=== PATIENT | female | born 1965 | race Hispanic/Latino ===

== ENCOUNTER 2020-08-17 10:04 | Emergency (ER) | payer SELFPAY ==
--- NOTE | 2020-08-17 11:48 | RAD REPORT ---
EXAM DESCRIPTION: RAD - Chest Single View - 08/17/2020 11:42 am CLINICAL HISTORY: COUGH Chest pain. COMPARISON: No comparisons FINDINGS: Portable technique limits examination quality. Interstitial lung markings are mildly prominent bilaterally. This may indicate viral pneumonitis or i nterstitial pneumonia. The heart is normal in size. No displaced fractures.
[2020-08-17] MEDS ORDERED: FENTANYL CITR 100 MCG/2 ML ONE (11:50)
[2020-08-17] MEDS ORDERED: ACETAMINOPHEN 500 MG TAB ONE (11:50)
[2020-08-17] MEDS ORDERED: NA CHLORIDE 0.9% 1,000 ML ONE (11:50)
[2020-08-17 12:06] LABS: Protime INR 1.03
[2020-08-17 12:18] LABS: ALT/SGPT 42 U/L (12-78); AST/SGOT 52 U/L (15-37); Albumin 3.5 g/dL (3.4-5.0); Alkaline Phosphatase 86 U/L (45-117); Amylase 31 U/L (25-115); BUN Blood Urea Nitrogen 11 mg/dL (7-18); Bicarbonate 25 mmol/L (21-32); Bilirubin Direct < 0.1 mg/dL (0-0.2); Bilirubin Total 0.3 mg/dL (0.2-1.0); CKMB Creatine Kinase MB < 1.0 ng/mL (0.3-3.6); Creatine Phosphokinase 84 U/L (26-192); Ferritin 157.6 ng/mL (8-388); Glucose Level 220 mg/dL (74-106); Lipase 105 U/L (73-393); Potassium 4.2 mmol/L (3.5-5.1); Protein, Total 8.1 g/dL (6.4-8.2); Sodium Level 127 mmol/L (136-145); Troponin (Emerg Dept Use Only) < 0.02 ng/mL (0.0-0.045)
[2020-08-17 12:29] LABS: Basophils % 0.2 % (0-1.3); Hematocrit 33.8 % (36.0-45.0); Lymphocytes % 18.2 % (15.3-44.8); MPV 9.4 fL (7.6-11.3); RBC Red Blood Cell Count 3.66 M/uL (3.86-4.86)
[2020-08-17] MEDS ORDERED: dexAMETHasone 10 MG/ML VIAL ONE (12:35)
[2020-08-17] MEDS ORDERED: AZITHROMYCIN IV 500 MG in NA CHLORIDE 0.9% 250 ML IVPB ONE (13:00)
--- NOTE | 2020-08-17 14:56 | EDPHYS ---
Physician Documentation [facility] Name: Wendy Mejía Age: 55 yrs Sex: Female : 1965 Arrival Date: 08/17/2020 Time: 10:06 Bed 19 Private MD: ED Physician Pee Amado HPI: 08/17 11:14 This 55 yrs old Female presents to ER via Ambulatory with complaints of Cough, snw Dizziness, Breathing Difficulty. 11:14 The patient or guardian reports cough, with no sputum, difficulty breathing. Onset: The snw symptoms/episode began/occurred gradually, 4 day(s) ago, and became worse and became persistent. Severity of symptoms: At their worst the symptoms were moderate. Associated signs and symptoms: The patient has no apparent associated signs or symptoms. The patient has not experienced similar symptoms in the past. The patient has been recently seen by a physician: the patient's primary care provider, 4 day(s) ago, with similar presenting complaints, lab tests were done, flu negative and CoVId pending. Historical: - Allergies: 10:06 No Known Allergies; aa5 - Home Meds: 14:50 glipizide 10 mg Oral tab 2 times per day [Active]; simvastatin 40 mg Oral tab once aa5 daily [Active]; gabapentin 300 mg oral cap twice a day [Active]; loratadine 10 mg oral tab 1 tab once daily [Active]; pantoprazole 40 mg oral TbEC once daily [Active]; allopurinol 100 mg Oral tab once daily [Active]; lisinopril-hydrochlorothiazide 20-25 mg oral tab once daily [Active]; metformin 1,000 mg Oral tab 2 times per day [Active]; Actos 15 mg Oral tab 1 tab once daily [Active]; - PMHx: 10:06 Hypertension; Diabetes - NIDDM; Hyperlipidemia; aa5 - PSHx: 10:06 Right eye; aa5 - Immunization history:: Adult Immunizations unknown. - Social history:: Smoking status: Patient denies any tobacco usage or history of. ROS: 11:14 Eyes: Negative for injury, pain, redness, and discharge, ENT: Negative for injury, snw pain, and discharge, Neck: Negative for injury, pain, and swelling, Cardiovascular: Negative for chest pain, palpitations, and edema. 11:14 Abdomen/GI: Negative for abdominal pain, nausea, vomiting, diarrhea, and constipation, Back: Negative for injury and pain, : Negative for injury, bleeding, discharge, and swelling, MS/Extremity: Negative for injury and deformity, Skin: Negative for injury, rash, and discoloration, Neuro: Negative for headache, weakness, numbness, tingling, and seizure. 11:14 Constitutional: Positive for body aches, chills, fatigue, fever, malaise, poor PO intake. 11:14 Respiratory: Positive for cough, shortness of breath, at rest. Exam: 10:51 Constitutional: This is a well developed, well nourished patient who is awake, alert, snw and in no acute distress. + fever, + bodyaches, + malaise Head/Face: Normocephalic, atraumatic. Eyes: Pupils equal round and reactive to light, extra-ocular motions intact. Lids and lashes normal. Conjunctiva and sclera are non-icteric and not injected. Cornea within normal limits. Periorbital areas with no swelling, redness, or edema. ENT: Nares patent. No nasal discharge, no septal abnormalities noted. Tympanic membranes are normal and external auditory canals are clear. Oropharynx with no redness, swelling, or masses, exudates, or evidence of obstruction, uvula midline. Mucous membranes moist. Neck: Trachea midline, no thyromegaly or masses palpated, and no cervical lymphadenopathy. Supple, full range of motion without nuchal rigidity, or vertebral point tenderness. No Meningismus. Chest/axilla: Normal chest wall appearance and motion. Nontender with no deformity. No lesions are appreciated. Cardiovascular: Regular rate and rhythm with a normal S1 and S2. No gallops, murmurs, or rubs. Normal PMI, no JVD. No pulse deficits. Abdomen/GI: Soft, non-tender, with normal bowel sounds. No distension or tympany. No guarding or rebound. No evidence of tenderness throughout. Back: No spinal tenderness. No costovertebral tenderness. Full range of motion. Skin: Warm, dry with normal turgor. Normal color with no rashes, no lesions, and no evidence of cellulitis. MS/ Extremity: Pulses equal, no cyanosis. Neurovascular intact. Full, normal range of motion. Neuro: Awake and alert, GCS 15, oriented to person, place, time, and situation. Cranial nerves II-XII grossly intact. Motor strength 5/5 in all extremities. Sensory grossly intact. Cerebellar exam normal. Normal gait. 10:51 Respiratory: the patient does not display signs of respiratory distress, Respirations: shallow respirations, tachypnea, Breath sounds: bronchial sounds, that are moderate, that are severe, are heard diffusely. 11:49 ECG was reviewed by the Attending Physician. kdr Vital Signs: 10:06 BP 149 / 73; Pulse 82; Resp 24 S; Temp 99.0(O); Pulse Ox 97% on R/A; Weight 81.65 kg aa5 (R); Pain 0/10; 10:24 BP 127 / 66; Pulse 83; Resp 18 S; Pulse Ox 98% on R/A; ca1 11:20 BP 126 / 70; Pulse 77; Resp 25 S; Pulse Ox 96% on R/A; ca1 12:35 BP 110 / 65; Pulse 68; Resp 24 S; Pulse Ox 98% on R/A; ca1 13:30 BP 104 / 70; Pulse 73; Resp 22; Pulse Ox 97% on R/A; ca1 14:38 BP 117 / 67; Pulse 69; Resp 22 S; Temp 98.4(O); Pulse Ox 98% on R/A; ca1 15:30 BP 109 / 68; Pulse 75; Resp 19 S; Pulse Ox 98% on R/A; ca1 MDM: 10:09 Patient medically screened. snw 15:01 Data reviewed: vital signs, nurses notes. Data interpreted: Pulse oximetry: on room air snw is 98 %. Interpretation: normal. Counseling: I had a detailed discussion with the patient and/or guardian regarding: the historical points, exam findings, and any diagnostic results supporting the discharge/admit diagnosis, lab results, radiology results, the need for outpatient follow up, to return to the emergency department if symptoms worsen or persist or if there are any questions or concerns that arise at home. Special discussion: Based on the history and exam findings, there is no indication for further emergent testing or inpatient evaluation. I discussed with the patient/guardian the need to see the primary care provider for further evaluation of the symptoms. I discussed with the patient/guardian the need to see the slag wheeler for further evaluation of the symptoms. 08/17 10:34 Order name: Amylase, Serum; Complete Time: 12:20 snw 08/17 10:34 Order name: Basic Metabolic Panel; Complete Time: 12:20 snw 08/17 10:34 Order name: Blood Culture Adult (2) snw 08/17 10:34 Order name: CBC with Diff; Complete Time: 12:45 snw 08/17 10:34 Order name: Ckmb; Complete Time: 12:20 snw 08/17 10:34 Order name: CPK; Complete Time: 12:20 snw 08/17 10:34 Order name: Lactate; Complete Time: 12:20 snw 08/17 10:34 Order name: LFT's; Complete Time: 12:20 snw 08/17 10:34 Order name: Lipase; Complete Time: 12:20 snw 08/17 10:34 Order name: Procalcitonin; Complete Time: 12:45 snw 08/17 10:34 Order name: Protime (+inr); Complete Time: 12:45 snw 08/17 10:34 Order name: Ptt, Activated; Complete Time: 12:45 snw 08/17 10:34 Order name: Troponin (emerg Dept Use Only); Complete Time: 12:20 snw 08/17 10:34 Order name: Urine Microscopic Only snw 08/17 10:34 Order name: Chest Single View XRAY; Complete Time: 12:07 snw 08/17 10:34 Order name: Accucheck; Complete Time: 11:55 snw 08/17 10:34 Order name: Cardiac monitoring; Complete Time: 11:55 snw 08/17 10:34 Order name: EKG - Nurse/Tech; Complete Time: 11:55 snw 08/17 10:34 Order name: Flu; Complete Time: 12:23 snw 08/17 10:34 Order name: COVID-19 snw 08/17 10:35 Order name: Ferritin; Complete Time: 12:20 snw 08/17 12:11 Order name: Glucose, Ancillary Testing; Complete Time: 12:13 EDMS 08/17 15:33 Order name: Urine Dipstick--Ancillary (enter results); Complete Time: 15:46 bd 08/17 10:34 Order name: IV Saline Lock - Large Bore; Complete Time: 11:56 snw 08/17 10:34 Order name: Labs collected and sent; Complete Time: 11:56 snw 08/17 10:34 Order name: O2 Per Protocol; Complete Time: 11:56 snw 08/17 10:34 Order name: O2 Sat Monitoring; Complete Time: 11:56 snw 08/17 10:34 Order name: Urine Dipstick-Ancillary (obtain specimen); Complete Time: 15:50 snw 08/17 14:29 Order name: Misc. Order: plese have pt ambulate around the room and monitor SpO2 snw continuously for 5 min; Complete Time: 14:38 EC:49 Rate is 74 beats/min. Rhythm is regular, Normal Sinus Rhythm with No ectopy. QRS [place] kdr is Normal. NV interval is normal. QRS interval is normal. QT interval is normal. No Q waves. Clinical impression: Normal ECG. Administered Medications: Discontinued: NS 0.9% 1000 ml IV at 125 ml/hr continuous 11:40 Drug: Tylenol 1000 mg Route: PO; ca1 11:50 Drug: NS 0.9% 1000 ml Route: IV; Rate: 125 ml/hr; Site: right antecubital; ca1 11:53 Drug: fentaNYL (PF) 25 mcg {Note: rass 0.} Route: IVP; Site: right antecubital; ca1 12:25 Drug: NS 0.9% 1000 ml Route: IV; Rate: 75 ml/hr; Site: right antecubital; ca1 12:29 Drug: Decadron - Dexamethasone 10 mg Route: IVP; Site: right antecubital; ca1 12:42 Drug: Zithromax 500 mg Route: IVPB; Infused Over: 1 hrs; Site: right antecubital; ca1 15:20 Drug: Tussionex Pennkinetic ER 5 ml Route: PO; aa5 Disposition: 08/18 07:50 Co-signature as Attending Physician, Pee Amado MD I agree with the assessment and kdr plan of care. Disposition: 08/17/20 14:55 Discharged to Home. Impression: Pneumonia due to SARS-associated coronavirus. - Condition is Stable. - Discharge Instructions: Aspirin and Your Heart, Rehydration, Adult, COVID-19. - Prescriptions for Albuterol Sulfate 90 mcg/actuation - inhale 1-2 puff by INHALATION route every 4-6 hours; 1 Inhaler. Zithromax 500 mg Oral Tablet - take 1 tablet by ORAL route once daily for 5 days; 5 tablet. Prednisone 20 mg Oral Tablet - take 2 tablet by ORAL route once daily for 5 days; 10 tablet. - Medication Reconciliation Form, Thank You Letter, Antibiotic Education, Prescription Opioid Use form. - Follow up: Private Physician; When: 2 - 3 days; Reason: Recheck today's complaints, Continuance of care, Re-evaluation by your physician. Follow up: Emergency Department; When: As needed; Reason: Worsening of condition. - Notes: Signatures: Dispatcher [employer] EDMS Pee Amado MD MD kdr Waters, Shelly, CLIENT RELATIONSHIP EXECUTIVE-C CLIENT RELATIONSHIP EXECUTIVE-Csnw Jina Jackson RN RN aa5 Alexandra Morales RN RN ca1 Corrections: (The following items were deleted from the chart) 08/17 15:57 14:55 08/17/2020 14:55 Discharged to Home. Impression: Pneumonia due to SARS-associated aa5 coronavirus. Condition is Stable. Forms are Medication Reconciliation Form, Thank You Letter, Antibiotic Education, Prescription Opioid Use. Follow up: Private Physician; When: 2 - 3 days; Reason: Recheck today's complaints, Continuance of care, Re-evaluation by your physician. Follow up: Emergency Department; When: As needed; Reason: Worsening of condition. snw
--- NOTE | 2020-08-17 14:56 | ER ---
Nurse's Notes [facility] Name: Wendy Mejía Age: 55 yrs Sex: Female : 1965 Arrival Date: 08/17/2020 Time: 10:06 Bed 19 Private MD: Diagnosis: Pneumonia due to SARS-associated coronavirus Presentation: 08/17 10:06 Chief complaint: Patient states: dry cough and SOB since Friday. Pt also reports chest aa5 pain with cough. Pending COVID-19 result completed on Friday by a Clinic in [place], [place], pt reports negative Flu swab on Friday. 10:06 Coronavirus screen: cough unrelated to allergies, shortness of breath, Client presents aa5 with at least one sign or symptom that may indicate coronavirus-19. Standard/surgical mask placed on the client. Provider contacted for isolation considerations. Ebola Screen: Patient negative for fever greater than or equal to 101.5 degrees Fahrenheit, and additional compatible Ebola Virus Disease symptoms. Initial Sepsis Screen: Does the patient meet any 2 criteria? No. Patient's initial sepsis screen is negative. Does the patient have a suspected source of infection? No. Patient's initial sepsis screen is negative. Risk Assessment: Do you want to hurt yourself or someone else? Patient reports no desire to harm self or others. Onset of symptoms was August 2020. 10:06 Acuity: VESTA 3 aa5 10:06 Method Of Arrival: Ambulatory aa5 Triage Assessment: 10:26 Respiratory: Onset: The symptoms/episode began/occurred. ca1 Historical: - Allergies: 10:06 No Known Allergies; aa5 - Home Meds: 14:50 glipizide 10 mg Oral tab 2 times per day [Active]; simvastatin 40 mg Oral tab once aa5 daily [Active]; gabapentin 300 mg oral cap twice a day [Active]; loratadine 10 mg oral tab 1 tab once daily [Active]; pantoprazole 40 mg oral TbEC once daily [Active]; allopurinol 100 mg Oral tab once daily [Active]; lisinopril-hydrochlorothiazide 20-25 mg oral tab once daily [Active]; metformin 1,000 mg Oral tab 2 times per day [Active]; Actos 15 mg Oral tab 1 tab once daily [Active]; - PMHx: 10:06 Hypertension; Diabetes - NIDDM; Hyperlipidemia; aa5 - PSHx: 10:06 Right eye; aa5 - Immunization history:: Adult Immunizations unknown. - Social history:: Smoking status: Patient denies any tobacco usage or history of. Screenin:24 Abuse screen: Denies threats or abuse. Denies injuries from another. Nutritional ca1 screening: No deficits noted. Tuberculosis screening: No symptoms or risk factors identified. Fall Risk None identified. Assessment: 10:20 General: Appears in no apparent distress. comfortable, Behavior is calm, cooperative, ca1 appropriate for age. Pain: Complains of pain in chest Pain currently is 7 out of 10 on a pain scale. Pain began 4 days, when coughing Is intermittent, Also complains of. Neuro: Level of Consciousness is awake, alert, obeys commands, Oriented to person, place, time, situation. Cardiovascular: Heart tones S1 S2 present Capillary refill < 3 seconds Patient's skin is warm and dry. Rhythm is sinus rhythm. Respiratory: Reports shortness of breath cough that is Airway is patent Respiratory effort is even, unlabored, Respiratory pattern is regular, symmetrical, tachypnea Breath sounds are clear bilaterally. GI: Abdomen is round non-distended, Bowel sounds present X 4 quads. Abd is soft and non tender X 4 quads. : No signs and/or symptoms were reported regarding the genitourinary system. EENT: No signs and/or symptoms were reported regarding the EENT system. Derm: Skin is intact, is healthy with good turgor, Skin is pink, warm \T\ dry. Musculoskeletal: Circulation, motion, and sensation intact. Capillary refill < 3 seconds. 11:20 Reassessment: Patient appears in no apparent distress at this time. Patient and/or ca1 family updated on plan of care and expected duration. Pain level reassessed. Patient is alert, oriented x 3, equal unlabored respirations, skin warm/dry/pink. 12:34 Reassessment: Patient appears in no apparent distress at this time. Patient and/or ca1 family updated on plan of care and expected duration. Pain level reassessed. Patient is alert, oriented x 3, equal unlabored respirations, skin warm/dry/pink. 13:30 Reassessment: Patient appears in no apparent distress at this time. Patient and/or ca1 family updated on plan of care and expected duration. Pain level reassessed. Patient is alert, oriented x 3, equal unlabored respirations, skin warm/dry/pink. 14:30 Reassessment: Patient appears in no apparent distress at this time. Patient and/or ca1 family updated on plan of care and expected duration. Pain level reassessed. Patient is alert, oriented x 3, equal unlabored respirations, skin warm/dry/pink. 15:00 Reassessment: Pt ambulated around nurse's station sats remained at 99% at RA. C/O a ca1 little SOB. 15:30 Reassessment: Patient appears in no apparent distress at this time. Patient is alert, ca1 oriented x 3, equal unlabored respirations, skin warm/dry/pink. Vital Signs: 10:06 BP 149 / 73; Pulse 82; Resp 24 S; Temp 99.0(O); Pulse Ox 97% on R/A; Weight 81.65 kg aa5 (R); Pain 0/10; 10:24 BP 127 / 66; Pulse 83; Resp 18 S; Pulse Ox 98% on R/A; ca1 11:20 BP 126 / 70; Pulse 77; Resp 25 S; Pulse Ox 96% on R/A; ca1 12:35 BP 110 / 65; Pulse 68; Resp 24 S; Pulse Ox 98% on R/A; ca1 13:30 BP 104 / 70; Pulse 73; Resp 22; Pulse Ox 97% on R/A; ca1 14:38 BP 117 / 67; Pulse 69; Resp 22 S; Temp 98.4(O); Pulse Ox 98% on R/A; ca1 15:30 BP 109 / 68; Pulse 75; Resp 19 S; Pulse Ox 98% on R/A; ca1 ED Course: 10:06 Patient arrived in ED. ag5 10:06 Arm band placed on Patient placed in an exam room, on a stretcher. aa5 10:07 Alexandra Morales, KESHA is Primary Nurse. ca1 10:08 Shanta Tomlin FNP-C is PHCP. snw 10:08 Pee Amado MD is Attending Physician. snw 10:22 Triage completed. aa5 10:24 Patient has correct armband on for positive identification. Bed in low position. Call ca1 light in reach. Side rails up X2. Pulse ox on. NIBP on. Warm blanket given. 11:42 Chest Single View XRAY In Process Unspecified. EDMS 11:46 Inserted saline lock: 20 gauge in right antecubital area, using aseptic technique. ca1 Blood collected. 11:46 Initial lab(s) drawn, by me, sent to lab. First set of blood cultures drawn by me. ca1 Administered Medications: Discontinued: NS 0.9% 1000 ml IV at 125 ml/hr continuous 11:40 Drug: Tylenol 1000 mg Route: PO; ca1 11:50 Drug: NS 0.9% 1000 ml Route: IV; Rate: 125 ml/hr; Site: right antecubital; ca1 11:53 Drug: fentaNYL (PF) 25 mcg {Note: rass 0.} Route: IVP; Site: right antecubital; ca1 12:25 Drug: NS 0.9% 1000 ml Route: IV; Rate: 75 ml/hr; Site: right antecubital; ca1 12:29 Drug: Decadron - Dexamethasone 10 mg Route: IVP; Site: right antecubital; ca1 12:42 Drug: Zithromax 500 mg Route: IVPB; Infused Over: 1 hrs; Site: right antecubital; ca1 15:20 Drug: Tussionex Pennkinetic ER 5 ml Route: PO; aa5 Outcome: 14:55 Discharge ordered by . snamy 15:57 Patient left the ED. aa5 Signatures: Dispatcher [employer] EDMS Shanta Tomlin, RANCHO RIM ROLLER OPERATOR-Jina Min, RN RN aa5 Alexandra Morales RN RN ca1 Evelia Murphy ag5 Corrections: (The following items were deleted from the chart) 12:39 10:20 Respiratory: Reports shortness of breath cough that is Airway is patent ca1 Respiratory effort is even, unlabored, Respiratory pattern is regular, symmetrical, Breath sounds are clear bilaterally. ca1 14:38 13:30 BP 117 / 67; Pulse 69bpm; Resp 22bpm; Spontaneous; Pulse Ox 98% RA; Temp 98.4F ca1 Oral; ca1
[2020-08-17] MEDS ORDERED: HYDROCODONE/CHLORPHEN 5 ML/OSYR ONE (15:37)
[2020-08-17 15:44] LABS: Urine Blood NEGATIVE (NEG); Urine Glucose 2+ (NEG); Urine Protein NEGATIVE (NEG); Urine pH 6.5 (5.0-7.0)
[2020-08-17 16:06] LABS: Urine Bacteria <20 /HPF (<20); Urine RBC <5 /HPF (NONE SEEN)
[2020-08-17 16:07] LABS: Urine Amorphous Sediment 1+ /HPF (NONE SEEN); Urine Mucus 1+ /HPF (NONE SEEN)
[2020-08-18 12:21] VITALS: TEMP 98.4; O2SAT 98
[2020-08-18 12:22] VITALS: BP 109/68
== END 2020-08-17 15:57 | disposition home or self-care (01) ==
LOC: ER 10:04
DX: U07.1 COVID-19 (principal); J12.89 Other viral pneumonia; I10 Essential (primary) hypertension; E78.5 Hyperlipidemia, unspecified; E11.9 Type 2 diabetes mellitus without complications
CPT/HCPCS: 36415; 71045; 80048; 80076; 81003; 81015; 82150; 82550; 82553; 82728; 82947; 83605; 83690; 84145; 84484; 85025; 85610; 85730; 87040; 87804; 93005; 96374; 96375; 99284; J0456; J1100; J3010; J7030; J7050

== ENCOUNTER 2021-11-04 13:44 | Inpatient (IN) | payer SELFPAY ==
[2021-11-04] MEDS ORDERED: MORPHINE 4 MG/ML SYR ONE (14:11)
[2021-11-04] MEDS ORDERED: ONDANSETRON 4 MG/2 ML VIAL ONE (14:11)
[2021-11-04 14:25] LABS: Absolute Lymphocytes (CBC) 0.5 K/uL (0.7-4.9); Hematocrit 37.8 % (36.0-45.0); Lymphocytes % 5.2 % (15.3-44.8); RBC Red Blood Cell Count 4.16 M/uL (3.86-4.86)
[2021-11-04] MEDS ORDERED: NA CHLORIDE 0.9% 1,000 ML ONE ×2 (14:27→15:04)
[2021-11-04 14:55] LABS: ALT/SGPT 43 U/L (12-78); AST/SGOT 33 U/L (15-37); Albumin 3.4 g/dL (3.4-5.0); Alkaline Phosphatase 49 U/L (45-117); BUN Blood Urea Nitrogen 41 mg/dL (7-18); Bicarbonate 26 mmol/L (21-32); Bilirubin Total 0.3 mg/dL (0.2-1.0); Glucose Level 211 mg/dL (74-106); Lipase 137 U/L (73-393); Potassium 4.2 mmol/L (3.5-5.1); Protein, Total 7.4 g/dL (6.4-8.2); Sodium Level 133 mmol/L (136-145)
[2021-11-04 14:56] LABS: Bilirubin Direct < 0.1 mg/dL (0-0.2)
--- NOTE | 2021-11-04 15:50 | RAD REPORT ---
EXAM DESCRIPTION: CT - Abdomen Pelvis W Contrast - 11/04/2021 3:07 pm CLINICAL HISTORY: syncope;Abd pain COMPARISON: <Comparisons> TECHNIQUE: Biphasic, helical CT imaging of the abdomen and pelvis was performed following 100 ml non -ionic IV contrast. No oral contrast administered. All CT scans are performed using dose optimization technique as appropriate and may include automated exposure control or mA/KV adjustment according to patient size. FINDINGS: No suspicious findings in the lung bases. The liver, spleen, and pancreas show no suspicious findings. Gallbladder and biliary tree are also wi thout suspicious finding. Symmetric renal function is seen with no hydronephrosis or suspicious renal mass. No pyelonephritis o r acute parenchymal process. Urinary bladder is contracted limiting detail. Uterus and ovaries show n o suspicious findings. No adrenal abnormalities. Stomach is distended but not dilated by retained fluid. There is fluid in the distal esophagus. No ga stric wall thickening or mass. No antrum or duodenal wall thickening. Outlet obstruction is not suspe cted. A few fluid-filled prominent small bowel loops are present. Colon is mostly decompressed. No ac sandy colon process seen. No free air, free fluid or inflammatory stranding. No hernia, mass or bulky lymphadenopathy. No suspicious bony findings. IMPRESSION: Fluid distends the stomach probably gastroparesis. No outlet obstruction suspected. A few small bowel loops are prominent and fluid-filled. Findings are most likely a nonspecific gastro enteritis. No obstruction, free air or emergent finding.
--- NOTE | 2021-11-04 15:56 | RAD REPORT ---
EXAM DESCRIPTION: US - Abdomen Exam Limited - 11/04/2021 3:47 pm CLINICAL HISTORY: ABD PAIN COMPARISON: Abdomen Pelvis W Contrast dated 11/04/2021 FINDINGS: No gallstones, sludge or other abnormalities within the gallbladder lumen. There is no wal l thickening or pericholecystic fluid. No common duct stone or biliary tree dilatation identified. IMPRESSION: Normal gallbladder and biliary tree ultrasound.
--- NOTE | 2021-11-04 16:48 | P.HP ---
Certification for Inpatient Patient admitted to: Inpatient With expected LOS: >2 Midnights Practitioner: I am a practitioner with admitting privileges, knowledge of patient current condition, hospital course, and medical plan of care. Services: Services provided to patient in accordance with Admission requirements found in Title 42 Section 412.3 of the Code of Federal Regulations Patient History Date of Service: 11/04/21 Reason for admission: Syncope History of Present Illness: Patient is a 56-year-old female with a known past medical history of hypertension, type 2 diabetes mellitus, hyperlipidemia and GERD. She presented to the ER accompanied by [id number] for evaluation of intractable nausea. Patient has been having these symptoms for the past 5 days. She was mainly having some nausea but later progressed on the day of admission when she developed two episodes of nonbloody vomiting. Her oral intake has been very poor during this time as well. Patient arrived in the ER where she syncopized. She was severely hypotensive with SBP in the 60s. Her mental status returned to normal limits after volume repletion. She was given 2 L. Her basic labs included CBC and BMP, which are unremarkable. CT abdomen and pelvis suggestive of gastroparesis. Upon review of your medications, it looks like she was taking lisinopril and HCTZ during this time. Physical Examination - Physical Exam General: In no apparent distress, Obese, Other (Lethargic) HEENT: Atraumatic, Normocephalic Respiratory: Clear to auscultation bilaterally, Normal air movement Cardiovascular: Normal pulses, Regular rate/rhythm, Normal S1 S2 Gastrointestinal: Normal bowel sounds, No tenderness, Distended Integumentary: No rashes, No breakdown, No significant lesion, No tenderness/swelling, No erythema Neurological: Normal speech, Normal affect - Studies Laboratory Data (last 24 hrs) 11/04/21 14:16: WBC 10.50, Hgb 12.6, Hct 37.8, Plt Count 190 11/04/21 14:16: Sodium 133 L, Potassium 4.2, BUN 41 H, Creatinine 1.06, Glucose 211 H, Total Bilirubin 0.3, AST 33, ALT 43, Alkaline Phosphatase 49, Lipase 137 Assessment and Plan - Problems (Diagnosis) (1) Syncope Current Visit: Yes Status: Acute (2) Nausea and vomiting Current Visit: Yes Status: Acute (3) Diabetic gastroparesis Current Visit: Yes Status: Acute (4) Obesity Current Visit: Yes Status: Acute (5) Hypotension Current Visit: Yes Status: Acute - Advance Directives Does patient have a Living Will: No Does patient have a Durable POA for Healthcare: No Physician Review Additional Text: Assessment Patient is a 56-year-old Italian-speaking female with past medical history of obesity, type 2 diabetes mellitus and hypertension. She is currently being admitted for syncope after an episode of intractable nausea and vomiting. She was severely hypotensive in the ER with SBP in the 60s. Her blood pressures returned to normal limits after 2 L of IV fluid Syncope Intractable nausea and vomiting Gastroparesis Type 2 diabetes mellitus Hypertension Hyperlipidemia Plan: Will admit inpatient for syncopal work-up Her syncope is most likely from hypovolemic state Currently with gastroparesis as per CT abdomen and pelvis. I will start her on a short course of IV Reglan and PPI Follow up HbA1c I will also obtain a GI consult Keep n.p.o. for bowel rest and start IV fluid infusion She will need daily orthostatic Follow up TTE DVT/GI prophylaxis
--- NOTE | 2021-11-04 16:58 | ER ---
Nurse's Notes [facility] Name: Wendy Mejía Age: 56 yrs Sex: Female : 1965 Arrival Date: 11/04/2021 Time: 13:48 Bed 6 Private MD: Diagnosis: Gastroparesis;Abdominal pain, unspecified;Syncope;Hypotension, unspecified Presentation: 11/04 13:50 Chief complaint: Patient states: pt reported right side abdominal and lower sternum goldberg pain x4days n/v. Coronavirus screen: Vaccine status: Patient reports receiving the 2nd dose of the covid vaccine. Ebola Screen: Patient denies travel to an Ebola-affected area in the 21 days before illness onset. Initial Sepsis Screen: Does the patient meet any 2 criteria? No. Patient's initial sepsis screen is negative. Does the patient have a suspected source of infection? No. Patient's initial sepsis screen is negative. Risk Assessment: Do you want to hurt yourself or someone else? Patient reports no desire to harm self or others. Onset of symptoms was October 2021. 13:50 Method Of Arrival: EMS: [facility] 13:50 Acuity: VESTA 3 goldberg Triage Assessment: 14:02 General: Appears in no apparent distress. Behavior is calm, cooperative. goldberg Historical: - Allergies: 13:57 No Known Allergies; ke1 - Home Meds: 13:57 Actos 15 mg Oral tab 1 tab once daily [Active]; allopurinol 100 mg Oral tab once daily goldberg [Active]; gabapentin 300 mg Oral cap twice a day [Active]; glipizide 10 mg Oral tab 2 times per day [Active]; lisinopril-hydrochlorothiazide 20-25 mg Oral tab once daily [Active]; loratadine 10 mg Oral tab 1 tab once daily [Active]; metformin 1,000 mg Oral tab 2 times per day [Active]; pantoprazole 40 mg Oral TbEC once daily [Active]; simvastatin 40 mg Oral tab once daily [Active]; - PMHx: 13:57 Diabetes - NIDDM; Hyperlipidemia; Hypertension; goldberg - Immunization history:: Adult Immunizations up to date. - Social history:: Smoking status: Patient denies any tobacco usage or history of. - Family history:: not pertinent. - Hospitalizations: : No recent hospitalization is reported. Screenin:57 Abuse screen: Denies threats or abuse. Denies injuries from another. Nutritional goldberg screening: No deficits noted. Tuberculosis screening: No symptoms or risk factors identified. Fall Risk Assessment: 13:55 Pain: Complains of pain in epigastric area and right upper quadrant. Cardiovascular: goldberg Reports fatigue, nausea, syncope. GI: Reports upper abdominal pain, nausea, vomiting. GI: Abd is soft Abdomen is tender to palpation in epigastric area and right upper quadrant. 14:30 Reassessment: morphine was given to pt and blood pressure decreased. provider notified. goldberg bedside u/s was conducted to r/o ruptured aneurysm. 19:17 General: updated pt and family on plan of care . as6 Vital Signs: 13:50 BP 105 / 64; Pulse 102; Resp 18; Temp 98.1; Pulse Ox 99% on R/A; Weight 77.11 kg; goldberg Height 5 ft. (152.40 cm); 14:20 BP 75 / 52; Pulse 76; Resp 16; Pulse Ox 97% on R/A; goldberg 14:33 BP 78 / 52; Pulse 77; Resp 16; Pulse Ox 96% on R/A; goldberg 14:40 BP 83 / 55; Pulse 82; Resp 16; Pulse Ox 95% on R/A; goldberg 14:44 BP 87 / 53; Pulse 85; Resp 16; Pulse Ox 96% on R/A; goldberg 14:49 BP 90 / 57; Pulse 83; Resp 16; Pulse Ox 97% on R/A; goldberg 14:55 BP 95 / 53; Pulse 82; Resp 16; Pulse Ox 96% on R/A; goldberg 15:13 BP 106 / 59; Pulse 89; Resp 16; Pulse Ox 99% on R/A; goldberg 16:25 BP 111 / 57; Pulse 89; Resp 21; Pulse Ox 99% on R/A; jl7 17:29 BP 122 / 71; Pulse 92; Resp 20; Pulse Ox 99% ; jl7 19:19 BP 105 / 64; Pulse 91; Resp 26 S; Pulse Ox 98% on R/A; as6 13:50 Body Mass Index 33.20 (77.11 kg, 152.40 cm) goldberg ED Course: 13:48 Patient arrived in ED. rn 13:48 Chriss Tinajero MD is Attending Physician. rn 13:55 Triage completed. goldberg 13:57 Patient has correct armband on for positive identification. Bed in low position. goldberg 13:57 No provider procedures requiring assistance completed. Maintain EMS IV. Dressing goldberg intact. Gauge \\T\\ site: 22g left hand. 14:03 Arm band placed on. goldberg 14:03 SARS-COV-2 RT PCR (Document "Date of Onset" if Symptomatic) Sent. goldberg 14:19 Basic Metabolic Panel Sent. goldberg 14:19 CBC with Diff Sent. goldberg 14:19 Hepatic Function Sent. goldberg 14:19 Lipase Sent. goldberg 14:33 Fanny Dean, RN is Primary Nurse. goldberg 14:33 Inserted saline lock: 20 gauge in right antecubital area, using aseptic technique. goldberg 15:06 CT Abd/Pelvis - IV Contrast Only In Process Unspecified. EDMS 15:47 US Abdomen Limited In Process Unspecified. EDMS 16:57 Prince Vernon MD is Hospitalizing Provider. rn 19:21 Primary Nurse role handed off by Fanny Dean RN eb 20:05 Patient admitted, IV remains in place. as6 Administered Medications: 14:18 Drug: morphine 4 mg Route: IVP; Site: right antecubital; goldberg 14:18 Follow up: Response: No adverse reaction goldberg 14:18 Drug: Zofran (Ondansetron) 4 mg Route: IVP; Site: right antecubital; goldberg 14:18 Follow up: Response: No adverse reaction goldberg 14:28 Drug: NS 0.9% 1000 ml Route: IV; Rate: 1000 ml; Site: right antecubital; goldberg 20:05 Follow up: Response: No adverse reaction; IV Status: Completed infusion; IV Intake: as6 1000ml 15:13 Drug: NS 0.9% 1000 ml Route: IV; Rate: 1000 ml; Site: right antecubital; goldberg 20:05 Follow up: Response: No adverse reaction; IV Status: Completed infusion; IV Intake: as6 1000ml Intake: 20:05 IV: 1000ml; Total: 1000ml. as6 20:05 IV: 1000ml; Total: 2000ml. as6 Outcome: 16:58 Decision to Hospitalize by Provider. rn 19:19 Admitted to Med/surg Report called to Attempted to give report. was told nurse is tw5 receiving report on other patients at this time. 20:05 Condition: stable as6 20:06 Patient left the ED. as6 Signatures: Dispatcher [employer] EDMS Chriss Tinajero MD MD rn Leal, Jahala RN RN jl7 Binta Bender Tiffany 5 Marcus Clarke RN RN as6 Fanny Dean RN RN ha Ebrottie, Kouassi, RN RN ke1
--- NOTE | 2021-11-04 16:59 | EDPHYS ---
Physician Documentation [facility] Name: Wendy Mejía Age: 56 yrs Sex: Female : 1965 Arrival Date: 11/04/2021 Time: 13:48 Bed 6 Private MD: ED Physician Chriss Tinajero HPI: 11/04 13:59 This 56 yrs old Female presents to ER via EMS with complaints of abd pain. rn 13:59 The patient presents with abdominal pain in the epigastric area, in the right upper rn quadrant. Onset: The symptoms/episode began/occurred 3 day(s) ago. The symptoms do not radiate. Associated signs and symptoms: Pertinent positives: nausea and vomiting, Pertinent negatives: diarrhea, fever, hematuria, vomiting blood. The symptoms are described as intermittent, sharp. Modifying factors: The symptoms are alleviated by nothing, the symptoms are aggravated by pressure, touching the area. Severity of pain: At its worst the pain was moderate in the emergency department the pain is unchanged. The patient has experienced similar episodes in the past. The patient has not recently seen a physician. Pt reports epigastric and RUQ abd pain, began 3 days ago, has had multiple times before but not this bad. NO fever. No diarrhea. No blood in stool. . Historical: - Allergies: 13:57 No Known Allergies; ke1 - Home Meds: 13:57 Actos 15 mg Oral tab 1 tab once daily [Active]; allopurinol 100 mg Oral tab once daily goldberg [Active]; gabapentin 300 mg Oral cap twice a day [Active]; glipizide 10 mg Oral tab 2 times per day [Active]; lisinopril-hydrochlorothiazide 20-25 mg Oral tab once daily [Active]; loratadine 10 mg Oral tab 1 tab once daily [Active]; metformin 1,000 mg Oral tab 2 times per day [Active]; pantoprazole 40 mg Oral TbEC once daily [Active]; simvastatin 40 mg Oral tab once daily [Active]; - PMHx: 13:57 Diabetes - NIDDM; Hyperlipidemia; Hypertension; goldberg - Immunization history:: Adult Immunizations up to date. - Social history:: Smoking status: Patient denies any tobacco usage or history of. - Family history:: not pertinent. - Hospitalizations: : No recent hospitalization is reported. ROS: 13:59 Constitutional: Negative for fever, chills, and weight loss, Eyes: Negative for injury, rn pain, redness, and discharge, Neck: Negative for injury, pain, and swelling, Cardiovascular: Negative for chest pain, palpitations, and edema, Respiratory: Negative for shortness of breath, cough, wheezing, and pleuritic chest pain, Abdomen/GI: + abd pain, + nausea/vomiting Back: Negative for injury and pain, : Negative for injury, bleeding, discharge, and swelling, MS/Extremity: Negative for injury and deformity, Skin: Negative for injury, rash, and discoloration, Neuro: Negative for headache, weakness, numbness, tingling, and seizure. Exam: 13:59 Constitutional: This is a well developed, well nourished patient who is awake, alert, rn crying and appears in pain Head/Face: Normocephalic, atraumatic. Eyes: Periorbital areas with no swelling, redness, or edema. Cardiovascular: Tachycardic, regular. No pulse deficits. Respiratory: No increased work of breathing, no retractions or nasal flaring. Abdomen/GI: soft, + epigastric and ruq tenderness, no distension, no pulsatile mass Skin: Warm, dry MS/ Extremity: Pulses equal, no cyanosis. Neuro: Awake and alert, GCS 15 Vital Signs: 13:50 BP 105 / 64; Pulse 102; Resp 18; Temp 98.1; Pulse Ox 99% on R/A; Weight 77.11 kg; goldberg Height 5 ft. (152.40 cm); 14:20 BP 75 / 52; Pulse 76; Resp 16; Pulse Ox 97% on R/A; goldberg 14:33 BP 78 / 52; Pulse 77; Resp 16; Pulse Ox 96% on R/A; goldberg 14:40 BP 83 / 55; Pulse 82; Resp 16; Pulse Ox 95% on R/A; goldberg 14:44 BP 87 / 53; Pulse 85; Resp 16; Pulse Ox 96% on R/A; goldberg 14:49 BP 90 / 57; Pulse 83; Resp 16; Pulse Ox 97% on R/A; goldberg 14:55 BP 95 / 53; Pulse 82; Resp 16; Pulse Ox 96% on R/A; goldberg 15:13 BP 106 / 59; Pulse 89; Resp 16; Pulse Ox 99% on R/A; goldberg 16:25 BP 111 / 57; Pulse 89; Resp 21; Pulse Ox 99% on R/A; jl7 17:29 BP 122 / 71; Pulse 92; Resp 20; Pulse Ox 99% ; jl7 19:19 BP 105 / 64; Pulse 91; Resp 26 S; Pulse Ox 98% on R/A; as6 13:50 Body Mass Index 33.20 (77.11 kg, 152.40 cm) goldberg Procedures: 14:29 Ultrasound: Type: Fast exam, performed by the emergency department physician, Bedside rn FAST performed after patient reported dizziness and monitor showed drop in BP. FAST neg. No evidence of AAA or free fluid.. MDM: 13:48 Patient medically screened. rn 14:29 ED course: Pt reported dizziness, repeat BP dropped, bedside u/s performed and FAST rn neg, no AAA, no free fluid. 1 L bolus started, and patient placed supine, BP improving, patient improving. . 16:56 Differential diagnosis: bowel obstruction, cholecystitis, Cholelithiasis, gastritis, rn gastroesophageal reflux disease, non-specific abd pain, pancreatitis, Peptic Ulcer Disease, Perf. Duodenal Ulcer. Differential diagnosis: gastroparesis. Data reviewed: vital signs, nurses notes. Counseling: I had a detailed discussion with the patient and/or guardian regarding: the historical points, exam findings, and any diagnostic results supporting the discharge/admit diagnosis, lab results, radiology results, the need for further work-up and treatment in the hospital. Response to treatment: the patient's symptoms have mildly improved after treatment, and as a result, I will admit patient. Admission orders: after a detailed discussion of the patient's condition and case, the admit orders are written by me. 11/04 13:50 Order name: Basic Metabolic Panel; Complete Time: 15:00 rn 11/04 13:50 Order name: CBC with Diff; Complete Time: 15:00 rn 11/04 13:50 Order name: Hepatic Function; Complete Time: 15:00 rn 11/04 13:50 Order name: Lipase; Complete Time: 15:00 rn 11/04 13:50 Order name: Troponin High Sensitivity; Complete Time: 15:00 rn 11/04 13:50 Order name: SARS-COV-2 RT PCR (Document "Date of Onset" if Symptomatic); Complete Time: rn 15:00 11/04 13:50 Order name: CT Abd/Pelvis - IV Contrast Only; Complete Time: 15:57 rn 11/04 13:50 Order name: US Abdomen Limited; Complete Time: 15:57 rn 11/04 13:50 Order name: EKG; Complete Time: 13:51 rn 11/04 16:40 Order name: Echo with Doppler EDMS 11/04 13:50 Order name: IV Saline Lock; Complete Time: 14:19 rn 11/04 13:50 Order name: Labs collected and sent; Complete Time: 14:19 rn 11/04 13:50 Order name: EKG - Nurse/Tech; Complete Time: 14:03 rn Administered Medications: 14:18 Drug: morphine 4 mg Route: IVP; Site: right antecubital; goldberg 14:18 Follow up: Response: No adverse reaction goldberg 14:18 Drug: Zofran (Ondansetron) 4 mg Route: IVP; Site: right antecubital; goldberg 14:18 Follow up: Response: No adverse reaction goldberg 14:28 Drug: NS 0.9% 1000 ml Route: IV; Rate: 1000 ml; Site: right antecubital; goldberg 20:05 Follow up: Response: No adverse reaction; IV Status: Completed infusion; IV Intake: as6 1000ml 15:13 Drug: NS 0.9% 1000 ml Route: IV; Rate: 1000 ml; Site: right antecubital; goldberg 20:05 Follow up: Response: No adverse reaction; IV Status: Completed infusion; IV Intake: as6 1000ml Disposition Summary: 11/04/21 16:58 Hospitalization Ordered Hospitalization Status: Inpatient Admission rn Provider: Prince Janeen rn Location: Telemetry/[facility] (Inpatient) rn Condition: Stable rn Problem: new rn Symptoms: have improved rn Bed/Room Type: Standard rn Room Assignment: [id number](11/04/21 17:20) eb Diagnosis - Gastroparesis rn - Abdominal pain, unspecified rn - Syncope rn - Hypotension, unspecified rn Forms: - Medication Reconciliation Form rn - SBAR form rn Signatures: Dispatcher [employer] EDChriss Coleman MD MD rn Botello, Elizabeth eb Au-Stager, Heather, RN RN ha Ebrottie, Kouassi, RN RN ke1 Slawson, Ashby RN as6 Corrections: (The following items were deleted from the chart) 17:20 16:58 rn eb
[2021-11-04] MEDS ORDERED: ONDANSETRON 4 MG/2 ML VIAL IV PRN (20:26)
[2021-11-04] MEDS ORDERED: SODIUM CHLORIDE 0.9% 10ML INJ IV PRN (20:26)
[2021-11-04] MEDS: D5 0.45 NS 1,000 ML IV SCH (20:26)
[2021-11-04] MEDS ORDERED: METOCLOPRAMIDE 10 MG/2mL INJ IV PRN (20:26)
[2021-11-04 20:36] VITALS: O2SAT 98
[2021-11-04] MEDS: PANTOPRAZOLE 40 MG INJ IVP SCH (22:17)
[2021-11-05 02:10] VITALS: BMI 33.2
[2021-11-05] MEDS ORDERED: NA CHLORIDE 0.9% 500 ML IV ONE (04:40)
[2021-11-05] MEDS: D5 0.45 NS 1,000 ML IV SCH (06:26)
[2021-11-05] MEDS ORDERED: PNEUMOCOCCAL VACCINE 0.5 ML IMVAC ONE (08:00)
[2021-11-05] MEDS ORDERED: ACETAMINOPHEN 500 MG TAB PO ONE (08:00)
[2021-11-05] MEDS ORDERED: INFLUENZA VACCINE (for 6+ mo) 0.5 ML DOSE IMVAC ONE (08:00)
[2021-11-05] MEDS: PANTOPRAZOLE 40 MG INJ IVP SCH (09:58)
--- NOTE | 2021-11-05 12:54 | CON ---
Date of Consultation: 11/05/2021 Reason For Consultation: Intractable nausea, vomiting, hypotension with syncope and dehydration in t he setting of diabetes and possible diabetic gastroparesis. History Of Present Illness: The patient is a 56-year-old female with history of diabetes, h ypertension, and gastroesophageal reflux disease. The patient presented to the hospital secondary to intractable nausea, vomiting, midepigastric pain, hypotension with syncope and dehydration. The pat domenica's family states she has been having midepigastric pain, nausea, and vomiting over the past year. Her glucoses ranged anywhere from 60 to 400, but appears to be mainly in the 200 to 400 range. She has a hemoglobin A1c of 8.3. She reports recently she passed out with syncope at home due to her de hydration. In the ER, she was severely hypotensive with a systolic blood pressure in the 60s. She w as oblivious of 102. She can retain her mental status once IV placed and IV fluids were begun. Once resuscitated, her CBC and basic metabolic panel appeared unremarkable by ER report. CT of the abdom en and pelvis suggestive of gastroparesis by fluid distended stomach suggesting this diagnosis, but s he also has fluid-filled small bowel loops suggestive of enteritis that she may have gastritis as wel l. Past Medical History: Significant for diabetes, hypertension, hyperlipidemia, GERD, and obesity. Medications: At home she is on Protonix, Reglan, IV fluids, D5 half-normal saline, Zofran , Fluzone, Lovenox, Pneumovax. Review of Systems: She has midepigastric pain, nausea, vomiting, hypotension, syncope, dehydration, altered mental statu s and this is better since IV fluid has been given. She denies any melena, hematochezia, hematemesis , coffee-ground emesis, hematuria, dysuria, polyuria, polydipsia, chest pain, shortness of breath, lo wer extremity edema, muscle aches, joint aches, backaches, depression, and anxiety. Physical Examination: Vital Signs: She is 5 feet, 170 pounds, BMI of 33.2 kg/m2. General: She is an obese female, lying in bed, in no acute distress. Somewhat weak. At least 4 fam hoda members present, 2 daughters and couple of sons and another relative as well, male relative. HEENT: Normocephalic, atraumatic. Anicteric. Pupils equal, round, and reactive to light. Extraocu lar movements intact. Oropharynx is clear. Neck: Supple. No masses. Respirations: Clear to auscultation bilaterally. Cardiac: Regular rate and rhythm. No gallops or rubs. Abdomen: Positive bowel sounds. Soft, nondistended. She had tenderness in the midepigastric area. Obese. Extremities: No clubbing, cyanosis, or edema. 2+ pulses. Neurologic: Grossly nonfocal. 5/5 motor. Sensation intact to light touch. Laboratory Data: The patient's white count is 10.5, hemoglobin of 12.6, hematocrit of 37.8, MCV of 9 1, platelet count 190, polys 92%, lymphocytes 5%, monocytes 3%. The patient has a sodium of 133, pot assium of 4.2, chloride 100, bicarb 26, BUN of 41, creatinine of 1.1, glucose 211. Hemoglobin A1c 7. 7, calcium 8.8, total bilirubin 0.3, direct bilirubin less than 0.1, AST of 33, ALT of 43, alkaline p hosphatase 49. Troponin I of 4.7. Total protein 7.4, albumin 3.4, lipase of 137. COVID-[address] of abdomen and pelvis revealed fluid distended stomach suggestive of gastroparesis and there were also a few small bowel loops. They were fluid-filled suggestive of gastroenteritis. Ultrasound of the abdomen was negative. Impression: Possible gastroparesis versus gastroenteritis or both in this patient. The patient has a longstanding history of 1 year of right upper quadrant, nausea, vomiting with hemoglobin A1c of 8.3 and glucoses in the range of 60 to 400, generally in the 200 to 400 range indicative of gastroparesi s is highly likely. This is related to her midepigastric pain, nausea, vomiting with hypotension, sy ncope and dehydration with systolic blood pressures in the 60s on admission, and altered mental statu s on admission which improved with resuscitation in the ER with IV fluids. Will need to investigate with gastric emptying study to confirm diagnosis of gastroparesis. We will continue IV fluids and IV antibiotics in the case if the patient may have a gastroenteritis, so it appears the patient does no t have diarrhea, but check stool studies as well if diarrhea does occur. Of note, the family states she has been having nausea and vomiting recently for the past 6 days and t hinks she can not really gastroenteritis or gastroparesis or both with infection on top of gastroparesis. Recommendations: 1.Check gastric emptying study. 2.Check hemoglobin A1c. 3.Optimize diabetes control therapy. 4.Reglan therapy. 5.Check stool studies if diarrhea occurs. If this patient has not had colon cancer screening, we wi ll need to pursue that as well in the 56-year-old patient. RAISA Voice ID: [id number] Report ID: [id number]
--- NOTE | 2021-11-05 14:10 | ECHO ---
HEIGHT: 5 ft 0 in WEIGHT: 170 lb 0 oz DATE OF STUDY: 11/05/[address]: Prince Annabelle Vernon MD 2-DIMENSIONAL: YES M.MODE: YES DOPPLER: YES COLOR FLOW: YES TDS: NO PORTABLE: NO DEFINITY: NO BUBBLE STUDY: NO DIAGNOSIS: SYNCOPE CARDIAC HISTORY: CATHERIZATION: SURGERY: PROSTHETIC VALVE: PACEMAKER: MEASUREMENTS (cm) DIASTOLIC (NORMALS) SYSTOLIC (NORMALS) IVSd 0.8 (0.6-1.2) LA Diam 3.3 (1.9-4.0) LVEF 60-65% LVIDd 4.3 (3.5-5.7) LVIDs 2.7 (2.0-3.5) %FS 37% LVPWd 1.0 (0.6-1.2) Ao Diam 2.5 (2.0-3.7) 2 DIMENSIONAL ASSESSMENT: RIGHT ATRIUM: NORMAL LEFT ATRIUM: NORMAL RIGHT VENTRICLE: NORMAL LEFT VENTRICLE: NORMAL TRICUSPID VALVE: NORMAL MITRAL VALVE: NORMAL PULMONIC VALVE: NORMAL AORTIC VALVE: NORMAL PERICARDIAL EFFUSION: NONE AORTIC ROOT: NORMAL LEFT VENTRICULAR WALL MOTION: NORMAL DOPPLER/COLOR FLOW: MILD TRICUSPID REGURGITATION. COMMENTS: NORMAL LEFT VENTRICULAR EJECTION FRACTION 60-65%. NORMAL WALL MOTION. MILD TRICUSPID REGURGITATION. TECHNOLOGIST: Ginna KNAPP
[2021-11-05] MEDS ORDERED: ENOXAPARIN 40 MG/0.4 ML SQ SCH (17:00)
[2021-11-06] MEDS: D5 0.45 NS 1,000 ML IV SCH (02:26)
--- NOTE | 2021-11-06 09:51 | RAD REPORT ---
EXAM DESCRIPTION: NM - Gastric Emptying Study - 11/06/2021 9:34 am CLINICAL HISTORY: Abdominal pain, possible gastroparesis COMPARISON: None. TECHNIQUE: The patient was administered approximately 1 mCi Tc 99m sulfur colloid in solid egg meal. Imaging of the left upper quadrant was performed with time/activity curve generated. FINDINGS: Cine-loop images show normal progression of the radiopharmaceutical from the stomach into the small bowel. Time to one-half activity is 70 minutes, normal. No other significant findings. IMPRESSION: Normal gastric emptying study.
[2021-11-06] MEDS: PANTOPRAZOLE 40 MG INJ IVP SCH (10:01)
[2021-11-06 12:12] VITALS: BP 109/61; TEMP 97.5
== END 2021-11-06 13:34 | disposition home or self-care (01) | DRG 74 ==
LOC: ER 13:44 → ERHOLD 16:38 → 2ND 20:02
PROVIDERS: ADMIT Internal Medicine; ATTEND Hospitalist
DX: E11.43 Type 2 diabetes mellitus with diabetic autonomic (poly)neuropathy (principal); K31.84 Gastroparesis; I10 Essential (primary) hypertension; E78.5 Hyperlipidemia, unspecified; K21.9 Gastro-esophageal reflux disease without esophagitis; E66.9 Obesity, unspecified; I95.9 Hypotension, unspecified; R55 Syncope and collapse; Z68.33 Body mass index [BMI] 33.0-33.9, adult; Z79.84 Long term (current) use of oral hypoglycemic drugs; Z79.899 Other long term (current) drug therapy; Z20.822 Contact with and (suspected) exposure to COVID-19
CPT/HCPCS: 36415; 74177; 76705; 78264; 80048; 80076; 82565; 82947; 83036; 83690; 84484; 85025; 93005; 93306; 96361; 96374; 96375; 99285; A9541; C9113; J1650; J2405; J7030; J7040; J7799; Q9967; U0003